=== PATIENT | male | born 1975 | race African-American/Black ===

== ENCOUNTER 2021-08-31 07:48 | Observation (INO) | payer OTHER ==
[2021-08-31] MEDS: SODIUM CHLORIDE 1,000 ML IV SCH ×2 (08:00→17:32)
[2021-08-31 08:44] LABS: VENOUS BASE EXCESS -4.3 mmol/L (-2-2); VENOUS O2 SATURATION 32.3 % (70-80); VENOUS PCO2 44.1 mmHg (38-52); VENOUS PH 7.314 (7.310-7.410)
[2021-08-31 08:57] LABS: BASO % 1.3 % (0-2.0); EOS % 1.4 % (0-4.5); HEMATOCRIT 40.8 % (35.4-49); HEMOGLOBIN 13.6 GM/dL (11.7-16.9); LYMPH % 32.7 % (8-40); MCH 32.5 pg (25.7-33.7); MCHC 33.3 g/dl (32.0-35.9); MEAN CELL VOLUME 97.7 fl (80-96); MEAN PLT VOLUME 8.7 fl (7.5-11.1); MONO % 11.3 % (3.8-10.2); NEUT % 53.3 % (42.8-82.8); PLATELET COUNT 220 10^3/uL (134-434); RBC 4.17 M/mm3 (4.00-5.60); RDW 15.2 % (11.9-15.9); WHITE BLOOD COUNT 7.6 K/mm3 (4.0-10.0)
[2021-08-31 09:48] LABS: ALBUMIN 3.9 g/dl (3.4-5.0); BILIRUBIN,TOTAL 0.6 mg/dL (0.2-1); BLOOD UREA NITROGEN 17.2 mg/dL (7-18); CREATININE 1.5 mg/dL (0.55-1.3); TOT PROT 8.5 g/dl (6.4-8.2)
[2021-08-31] MEDS ORDERED: levETIRAcetam 500 MG/5 ML INJECTION VIAL IVPB ONE ×2 (10:07→10:13)
[2021-08-31 11:05] LABS: INR 1.03 (0.83-1.09); PROTHROMBIN TIME (PATIENT) 11.8 SEC (9.7-13.0)
[2021-08-31 11:43] LABS: BLOOD UREA NITROGEN 15.3 mg/dL (7-18); CALCIUM 9.2 mg/dL (8.5-10.1)
[2021-08-31 11:47] LABS: CREATININE 1.4 mg/dL (0.55-1.3)
[2021-08-31] MEDS ORDERED: ACETAMINOPHEN 325 MG TABLET (FP) PO PRN (12:09)
[2021-08-31] MEDS ORDERED: amLODIPine BESYLATE 5 MG TABLET (FP) PO SCH (12:15)
[2021-08-31 17:04] VITALS: BMI 23.4
[2021-08-31] MEDS: amLODIPine BESYLATE 5 MG TABLET (FP) PO SCH (17:35)
[2021-08-31] MEDS: NICOTINE 7 MG/24 HOURS TOPICAL PATCH TD SCH (21:16)
[2021-08-31] MEDS: HEPARIN NA (PORCINE) 5,000 UNITS/ML 1ML VIAL SQ SCH (21:16)
[2021-09-01] MEDS: HEPARIN NA (PORCINE) 5,000 UNITS/ML 1ML VIAL SQ SCH ×2 (08:59→21:49)
[2021-09-01] MEDS: SODIUM CHLORIDE 1,000 ML IV SCH (08:59)
[2021-09-01] MEDS: NICOTINE 7 MG/24 HOURS TOPICAL PATCH TD SCH (08:59)
[2021-09-01] MEDS: amLODIPine BESYLATE 5 MG TABLET (FP) PO SCH (09:00)
[2021-09-01] MEDS: levETIRAcetam 500 MG TABLET (FP) PO SCH (21:48)
[2021-09-02 09:13] VITALS: BP 149/78; PULSE 53; TEMP 98.4
[2021-09-02] MEDS: SODIUM CHLORIDE 1,000 ML IV SCH (10:19)
[2021-09-02] MEDS: HEPARIN NA (PORCINE) 5,000 UNITS/ML 1ML VIAL SQ SCH (10:20)
[2021-09-02] MEDS: NICOTINE 7 MG/24 HOURS TOPICAL PATCH TD SCH (10:20)
[2021-09-02] MEDS: levETIRAcetam 500 MG TABLET (FP) PO SCH (10:20)
[2021-09-02] MEDS: amLODIPine BESYLATE 5 MG TABLET (FP) PO SCH (10:20)
== END 2021-09-02 14:48 | disposition home or self-care (01) ==
LOC: JER 07:48 → JERBED 09:03 → INTOOBSV 09:03 → UNDOADMOB 09:03 → JERBED 12:09 → J4W 16:35
PROVIDERS: ADMIT Internal Medicine; ATTEND Internal Medicine
PROC: 3E023GC Introduction of Other Therapeutic Substance into Muscle, Percutaneous Approach (ICD-10-PCS; principal; 2021-08-31)
PROC: 3E033GC Introduction of Other Therapeutic Substance into Peripheral Vein, Percutaneous Approach (ICD-10-PCS; 2021-08-31)
PROC: 3E0337Z Introduction of Electrolytic and Water Balance Substance into Peripheral Vein, Percutaneous Approach (ICD-10-PCS; 2021-08-31)
DX: R56.9 Unspecified convulsions (principal); I10 Essential (primary) hypertension
CPT/HCPCS: 36415; 70450-TC; 70553-TC; 71045-TC-FY; 76775-TC; 80048; 80053; 80061; 82550; 82553; 82803; 83036; 83735; 84484; 85025; 85610; 85730; 86900; 93005; 93010; 99285-25; A9579; C9803-CS; G0378; J1644; U0003; U0005

== ENCOUNTER 2022-06-02 11:17 | Emergency (ER) | payer OTHER ==
[2022-06-02 11:34] VITALS: BMI 26.9
[2022-06-02 12:59] LABS: BASO % 0.4 % (0-2.0); EOS % 0.8 % (0-4.5); HEMATOCRIT 40.2 % (35.4-49); HEMOGLOBIN 13.6 GM/dL (11.7-16.9); LYMPH % 15.5 % (8-40); MCH 32.1 pg (25.7-33.7); MCHC 33.7 g/dl (32.0-35.9); MEAN CELL VOLUME 95.1 fl (80-96); MEAN PLT VOLUME 7.7 fl (7.5-11.1); MONO % 11.8 % (3.8-10.2); NEUT % 71.5 % (42.8-82.8); PLATELET COUNT 204 10^3/uL (134-434); RBC 4.23 M/mm3 (4.00-5.60); RDW 14.9 % (11.9-15.9); WHITE BLOOD COUNT 5.2 K/mm3 (4.0-10.0)
[2022-06-02 13:20] LABS: CALCIUM 9.6 mg/dL (8.5-10.1)
[2022-06-02 13:21] LABS: BLOOD UREA NITROGEN 17.8 mg/dL (7-18)
[2022-06-02 13:24] VITALS: RESP 18
[2022-06-02 13:24] LABS: CREATININE 1.4 mg/dL (0.55-1.3)
[2022-06-02 13:26] LABS: BILIRUBIN,TOTAL 0.4 mg/dL (0.2-1)
[2022-06-02 15:34] VITALS: BP 132/80; PULSE 72; TEMP 98.1
== END 2022-06-02 15:41 | disposition home or self-care (01) ==
LOC: JER 11:17
DX: G40.89 Other seizures (principal)
CPT/HCPCS: 36415; 70450-TC; 80053; 80177; 82962; 85025; 93005; 93010; 99285-25